=== PATIENT | female | born 1945 | race Caucasian/White ===

== ENCOUNTER → 2017-03-10 | Outpatient (CLI) | payer OTHER ==
[~2017-03-10] MED LIST: AMLO-110 PO; ASPEC81 PO; CALC-354 PO; CYCL-259 PO; CYCL0.052 OP; FLUT50SP14 NAE; LISI20TA55 PO; LORA-741 PO; LPR25 PO; MELO15TA4 PO; MULT-920 PO; POLYSOL OPB; SENN-61 PO; SODIUM CHLORIDE 5% OPB
--- NOTE | 2017-03-10 14:14 | MAMMOGRAPHY REPORT ---
BILATERAL DIGITAL SCREENING MAMMOGRAM WITH CAD: 03/10/2017 CLINICAL HISTORY: Routine screening. Patient has no complaints. TECHNIQUE: Bilateral CC and MLO views were obtained. Current study was also evaluated with a Comput er Aided Detection (CAD) system. COMPARISON: Comparison is made to exams dated: 03/06/2016 mammogram, 03/27/2015 stereotactic biopsy, 03/27/2015 mammogram, 03/13/2015 mammogram, 03/05/2015 mammogram, and 03/06/2014 mammogram - [facility]. BREAST COMPOSITION: There are scattered areas of fibroglandular density in both breasts. FINDINGS: There is a stable metallic biopsy marker in the upper outer posterior left breast. A few b enign-appearing rim calcifications and minimal vascular calcification in the breasts. No suspicious mass, architectural distortion or cluster of suspicious microcalcifications is seen. IMPRESSION: ACR BI-RADS CATEGORY 1: NEGATIVE There is no mammographic evidence of malignancy. A 1 year screening mammogram is recommended. The pa tient will receive written notification of the results. Approximately 10% of breast cancers are not detected with mammography. A negative mammographic report should not delay biopsy if a clinically suggestive mass is present. Jasmyne Palma M.D. ay/:03/10/2017 13:28:41 Procurement Intern: Milli Murillo, [facility] letter sent: Normal 1/2 BI-RADS Code: ACR BI-RADS Category 1: Negative
== END | disposition home or self-care (01) ==
LOC: C.MAMM 08:45
PROVIDERS: ATTEND Student in an Organized Health Care Education/Training Program
DX: Z12.31 Encounter for screening mammogram for malignant neoplasm of breast (principal)